=== PATIENT | female | born 1970 | race Caucasian/White ===

== ENCOUNTER 2017-09-30 18:22 | Emergency (ER) | payer MEDICAID ==
[~2017-09-30] VITALS: Ht 170.2 cm; Wt 72.6 kg
[2017-09-30 19:15] VITALS: BP 102/72
[2017-09-30 19:45] VITALS: BP 0/0
--- NOTE | 2017-10-01 07:01 | Emergency Room Report ---
History of Present Illness General Chief Complaint: Medical Clearance Source: Patient, EMS Present Illness HPI Patient was initially brought in by police department for clearance for booking however she was released by the police department soon after presentation Patient was reported to ingest several bags of crack cocaine She said that she did not want to be arrested for possession of drugs Patient also reported that she was approximately 20 weeks Denies any chest pain she complained of some epigastric discomfort Denies any vomiting Allergies: Coded Allergies: No Known Allergies (Unverified , 09/30/17) Patient History Past Medical History: see triage record Pertinent Family History: none Reviewed Nursing Documentation: PMH: Agreed; PSxH: Agreed Nursing Documentation-PMH Past Medical History: No Stated History Review of Systems All Other Systems: negative except mentioned in HPI Physical Exam Vital Signs Date Time Temp Pulse Resp B/P (MAP) Pulse Ox O2 Delivery O2 Flow Rate FiO2 09/30/17 18:11 98.1 98 14 119/82 98 Room Air 98.1 Sp02 EP Interpretation: reviewed, normal General Appearance: well appearing, no apparent distress Head: normocephalic, atraumatic Eyes: bilateral eye PERRL, bilateral eye EOMI ENT: hearing grossly normal, normal pharynx, TMs + canals normal, uvula midline Neck: full range of motion, supple, no meningismus, no bony tend Respiratory: lungs clear, normal breath sounds, no rhonchi, no respiratory distress, no retraction, no accessory muscle use Cardiovascular #1: normal peripheral pulses, regular rate, rhythm, no edema, no gallop, no JVD, no murmur Gastrointestinal: normal bowel sounds, non tender, soft, no mass, no organomegaly, non-distended, no guarding, no hernia, no pulsatile mass, no rebound Musculoskeletal: normal inspection Neurologic: oriented x3, responsive, skein straightener III-XII nml as tested, motor strength/ tone normal, sensory intact Psychiatric: mood/affect normal Skin: normal color, no rash, warm/dry, palpation normal Lymphatic: normal inspection, no adenopathy Medical Decision Making Diagnostic Impression: Primary Impression: medical clearance Additional Impression: Drug abuse ER Course Upon initial arrival Patient had test performed this was negative The police had already left I advised the patient that we need to take an x-ray of the abdomen to look for the backs of cocaine Patient smiled and laughed She insinuated that she knew she was not and merely said that so the please department with leave At this time she is awake alert refuses any further care Understands that if she did ingest the drugs the bags can burst lead to cardiac arrest and possible And leaving AGAINST MEDICAL ADVICE Labs Test 09/30/17 18:35 Urine HCG, Qualitative Negative (NEGATIVE) Urine Opiates Screen Negative (NEGATIVE) Urine Barbiturates Screen Negative (NEGATIVE) Phencyclidine (PCP) Screen Negative (NEGATIVE) Urine Amphetamines Screen Negative (NEGATIVE) Urine Benzodiazepines Screen Negative (NEGATIVE) Urine Cocaine Screen Positive (NEGATIVE) Urine Marijuana (THC) Screen Negative (NEGATIVE) Last Vital Signs Date Time Temp Pulse Resp B/P (MAP) Pulse Ox O2 Delivery O2 Flow Rate FiO2 09/30/17 19:45 0/0 09/30/17 19:15 98.2 96 15 97 Room Air 98.2 Status: improved Disposition: AGAINST MEDICAL ADVICE Condition: Improved Referrals: NOT CHOSEN IPA/,REFERRING (PCP) Juan Kaur DO October 01, 2017 07:01
== END 2017-09-30 19:45 ==
LOC: EDBD 18:22 → EMR 19:00
DX: F14.10 Cocaine abuse, uncomplicated (principal)
CPT/HCPCS: 80307; 81025; 99281